=== PATIENT | male | born 1970 ===

== ENCOUNTER 2017-05-07 06:15 | Observation (INO) | payer OTHER ==
[2017-05-07] MEDS ORDERED: Metoclopramide IV* 5 MG/ML 2 ML VIAL IV ONE (06:29)
[2017-05-07] MEDS ORDERED: HYDROmorphone INJ* 1 MG/ML CARPUJECT SYRINGE IV SLOW PU PRN (06:29)
[2017-05-07] MEDS ORDERED: Ketorolac INJ* 30 MG/ML 1 ML VIAL IV ONE (06:29)
[2017-05-07] MEDS ORDERED: NS 0.9% 1000 ML* 2,000 ML IV ONE ×2 (06:29→10:41)
--- NOTE | 2017-05-07 06:54 | ED ---
Maday Le Thomas, scribed for Jessica Ruth MD on 05/07/17 at 0629 . Abdominal Pain/Male - HPI Summary HPI Summary: The patient is a 46 year old male presenting to the emergency department complaining of right-sided flank pain that woke him up this morning at 05:00. The pain radiates to his groin. The pain is constant and it is rated 10/10. The patient states that he is unable to sit. The patient has treated the symptoms with nothing prior to arrival. Patient has been vomiting in the emergency department. Patient denies fever. - History of Current Complaint Chief Complaint: EDFlankPain Stated Complaint: BACK PAIN Time Seen by Provider: 05/07/17 06:22 Hx Obtained From: Patient Onset/Duration: Lasting Hours - onset this AM at 05:00, Still Present Timing: Constant Severity Initially: Severe Severity Currently: Severe Pain Intensity: 10 Pain Scale Used: 0-10 Numeric Location: Flank - R Radiates: Yes Radiates to: Other - Groin Aggravating Factor(s): Other: - Patient is unable to sit Alleviating Factor(s): Nothing Associated Signs And Symptoms: Positive: Vomiting. Negative: Fever - Allergies/Home Medications Allergies/Adverse Reactions: Allergies Allergy/AdvReac Type Severity Reaction Status Date / Time No Known Allergies Allergy Verified 04/29/15 14:04 PMH/Surg Hx/FS Hx/Imm Hx Previously Healthy: Yes Endocrine/Hematology History: Denies: Hx Diabetes Cardiovascular History: Denies: Hx Hypertension History: Denies: Hx Renal Disease Infectious Disease History: No Infectious Disease History: Denies: Traveled Outside the [place] in Last 30 Days - Family History Known Family History: Positive: Other - Patient denies relevant FHx - Social History Alcohol Use: Occasionally Substance Use Type: Reports: None Smoking Status (MU): Never Smoked Tobacco Review of Systems Negative: Fever Positive: Vomiting Positive: flank pain - R All Other Systems Reviewed And Are Negative: Yes Physical Exam - Summary Physical Exam Summary: VITAL SIGNS: Reviewed. GENERAL: Patient is a well-developed and nourished male who is lying in the stretcher. Patient is not in any acute respiratory distress. He is in moderate distress secondary to the pain. HEAD AND FACE: No signs of trauma. No ecchymosis, hematomas or skull depressions. No sinus tenderness. EYES: PERRLA, EOMI x 2, No injected conjunctiva, no nystagmus. EARS: Hearing grossly intact. Ear canals and tympanic membranes are within normal limits. MOUTH: Oropharynx within normal limits. NECK: Supple, trachea is midline, no adenopathy, no JVD, no carotid bruit, no c- spine tenderness, neck with full ROM. CHEST: Symmetric, no tenderness at palpation LUNGS: Clear to auscultation bilaterally. No wheezing or crackles. CVS: Regular rate and rhythm, S1 and S2 present, no murmurs or gallops appreciated. ABDOMEN: Soft, non-tender. No signs of distention. No rebound no guarding, and no masses palpated. Bowel sounds are normal. BACK: He has right CVA tenderness. EXTREMITIES: FROM in all major joints, no edema, no cyanosis or clubbing. NEURO: Alert and oriented x 3. No acute neurological deficits. Speech is normal and follows commands. SKIN: Dry and warm Triage Information Reviewed: Yes Vital Signs On Initial Exam: Initial Vitals Temp Pulse Resp BP Pulse Ox 97.1 F 64 22 158/100 98 05/07/17 06:20 05/07/17 06:20 05/07/17 06:20 05/07/17 06:20 05/07/17 06:20 Vital Signs Reviewed: Yes Diagnostics - Vital Signs Vital Signs Temp Pulse Resp BP Pulse Ox 05/07/17 06:20 97.1 F 64 22 158/100 98 - Laboratory Lab Statement: Any lab studies that have been ordered have been reviewed, and results considered in the medical decision making process. - CT CT Abd/Pel CT Interpretation Completed By: Radiologist - RESULTS PENDING--SEE [facility] Abdominal Pain Fem Course/Dx - Course Assessment/Plan: The patient is a 46 year old male presenting to the emergency department complaining of right-sided flank pain that woke him up this morning at 05:00. The pain radiates to his groin. Patient has been vomiting in the emergency department. He is in moderate distress secondary to the pain. In the ED course the patient was given Dilaudid, Toradol, Reglan, and IV fluids. Bloodwork and urinalysis are ordered. CT Abd/Pel is ordered. The patient is diagnosed with renal colic. The patient will be signed out at shift change to Dr. Bee pending CT and labwork, awaiting disposition. - Diagnoses Provider Diagnoses: Renal colic Discharge - Discharge Plan Condition: Stable Disposition: OTHER Discharge Disposition Comment: Sign out to Dr. eBe, pending CT/Labs, awaiting dispo. Referrals: No Primary Care Phys,NOPCP [Primary Care Provider] - The documentation as recorded by the Maday holder Thomas accurately reflects the service I personally performed and the decisions made by me, Jessica Ruth MD.
[2017-05-07 07:01] LABS: ABS Basophils 0.3 10^3/ul (0-0.2); ABS Eosinophils 0.3 10^3/ul (0-0.6); ABS Lymphocytes 4.1 10^3/ul (1.0-4.8); ABS Monocytes 0.7 10^3/ul (0-0.8); ABS Neutrophils 4.8 10^3/ul (1.5-7.7); ABS Nucleated RBC 0.01 10^3/ul; Eosinophil % 2.7 % (0-6); Hematocrit 45 % (42-52); Hemoglobin 15.4 g/dl (14.0-18.0); Lymphocyte % 40.7 % (25-47); Mean Corpuscular HGB Conc 35 g/dl (31-36); Mean Corpuscular Hemoglobin 31 pg (27-31); Mean Corpuscular Volume 88 fL (80-94); Mean Platelet Volume 9 um3 (7.4-10.4); Nucleated Red Blood Cells % 0.1; Platelet Count 274 10^3/ul (150-450); Red Blood Count 5.05 10^6/ul (4.0-5.4); Red Cell Distribution Width 13 % (10.5-15); White Blood Count 10.1 10^3/ul (3.5-10.8)
[2017-05-07 07:28] LABS: EGFR Non-African American 69.8 (>60)
--- NOTE | 2017-05-07 07:59 | RAD ---
Indication: Flank pain. CT of the abdomen and pelvis was performed without oral or IV contrast administration. Coronal and sagittal reconstructed images were obtained. Lung bases demonstrate no pleural fluid, nodules or masses. Heart is of normal size without evidence of pericardial effusion. Liver is normal in size. No focal lesions or intrahepatic duct dilatation is noted. There is diffuse decrease in density of the liver consistent with hepatic steatosis. The spleen is normal in size. The pancreas demonstrates no mass or pancreatic duct dilatation. Common duct is not dilated. No adrenal lesions are noted. There is mild to moderate right hydronephrosis and hydroureter. There is a calculus in the right ureter is midportion of the L4 level. Mild right hydronephrosis is noted. The calculus measures approximately 5 mm. The left kidney shows no hydronephrosis. The urinary bladder is unremarkable. No dilated loops of bowel are noted. The colon is filled with stool. Diverticulosis without definite evidence of diverticulitis is noted. IMPRESSION: 5 mm calculus in the mid to distal ureter on the right measuring 5 mm at the level of L4. Mild right hydronephrosis is noted. Hepatic steatosis is present.
[2017-05-07] MEDS ORDERED: NS 0.9% 1000 ML* 1,000 ML IV ONE (08:31)
[2017-05-07] MEDS ORDERED: HYDROmorphone INJ* 1 MG/ML CARPUJECT SYRINGE IV ONE ×2 (08:33→10:41)
[2017-05-07] MEDS ORDERED: Tamsulosin CAP* 0.4 MG PO ONE (08:34)
[2017-05-07 09:11] LABS: Urine Appearance Clear; Urine Blood 2+ (Negative); Urine Color Straw; Urine Ketones Negative (Negative); Urine Protein Negative (Negative); Urine Urobilinogen Negative (Negative)
[2017-05-07] MEDS ORDERED: oxyCODONE/Acetamin 5/325 MG* TAB PO ONE (10:40)
[2017-05-07] MEDS ORDERED: Ondansetron INJ* 2 MG/ML VIAL IV ONE (11:55)
[2017-05-07] MEDS ORDERED: Morphine INJ* 4 MG/ML 1 ML CARPUJECT IV ONE (14:17)
[2017-05-07] MEDS ORDERED: Metoclopramide IV* 5 MG/ML 2 ML VIAL IV SLOW PU ONE (14:20)
[2017-05-07] MEDS ORDERED: Acetaminophen TAB* 325 MG PO PRN (17:34)
[2017-05-07] MEDS ORDERED: Morphine INJ* 2 MG/ML 1 ML SYRINGE (TWO MG - NEW SYRINGE VERSION) IV PRN (17:34)
[2017-05-07] MEDS ORDERED: cefTRIAXone(*) 1 GM in NS 0.9% 50 ML* 50 ML IVPB ONE (17:37)
--- NOTE | 2017-05-07 18:21 | ED ---
Quin Le Abhishek, scribed for Luis Antonio Bee MD on 05/07/17 at 0853 . Course/Dx - Course Course Of Treatment: Pt was signed out from Dr. Ruth, pending disposition and awaiting CT A/P. Upon reevaluation, the patient showed moderate pain distress. CT A/P ,per radiologist, reveals 5 mm calculus in the mid to distal ureter on the right measuring 5 mm at the level of L4. Mild right hydronephrosis is noted. Hepatic steatosis is present. ED physician has reveiwed this radiology report. PATIENT ADMITTED BY HOSPITALIST FOR INTRACTABLE FLANK/ABD PAIN. - Diagnoses Provider Diagnoses: Kidney stone on right side Progress (inactive) - Progress Note Progress Note: Pt was signed out from Dr. Ruth, pending disposition and awaiting CT A/P. Upon reevaluation, the patient showed moderate pain distress. The documentation as recorded by the Quin holder Abhishek accurately reflects the service I personally performed and the decisions made by , Luis Antonio Bee MD.
[2017-05-07] MEDS: NS 0.9% 1000 ML* 1,000 ML IV SCH (19:37)
[2017-05-07] MEDS ORDERED: Ondansetron INJ* 2 MG/ML VIAL IV PRN (22:43)
--- NOTE | 2017-05-07 23:48 | HP ---
HISTORY AND PHYSICAL: ADDENDUM: PHYSICAL EXAMINATION GENERAL APPEARANCE: The patient is a very pleasant 46-year-old male, who is in no acute distress. Alert, awake, and oriented x3. VITAL SIGNS: Blood pressure of 121/63, heart rate of 67 and regular, respiratory rate of 14, oxygen saturation 98% on room air, and temperature 97.1. HEENT: Head atraumatic and normocephalic. Eyes; pupils are equal, round, and reactive to light and accommodation. Oropharynx clear. Mucosa moist. NECK: Supple. No JVD, no bruits bilaterally. RESPIRATORY: Clear to auscultation bilaterally. CARDIOVASCULAR: Regular rate and rhythm. No murmur. ABDOMEN: Soft and nontender. Bowel sounds present in all 4 quadrants. EXTREMITIES: There is no edema. Pulses are +2 bilaterally. No clubbing or cyanosis. BACK: The patient has right lower flank tenderness to palpation. LABORATORY DATA: Show a white blood cell count of 10.1, hemoglobin of 15.4, hematocrit of 45, and platelets of 274. Sodium was 137, potassium of 3.8, chloride 104, carbon dioxide 23, BUN 20, and creatinine of 1.14. Liver function tests were unremarkable. Urinalysis showed +[address] of abdomen and pelvis. Impression: A 5-mm calculus at the mid to distal ureter on the right measuring 5 mm at the level of L4. Mild right hydronephrosis is noted. ASSESSMENT AND PLAN: A 46-year-old male with no significant past medical history who presents with right flank pain and he has a 5-mm ureteral stone. The patient is going to be placed on overnight observation to the surgical unit. We intravenous hydration and opioid pain medications for pain control. The patient is going to be asked to strain his urine. Hopefully by tomorrow the patient is going to be able to pass the stone. We will obtain a repeat ultrasound of the right kidney tomorrow if he continues to have symptoms tomorrow. For DVT prophylaxis, the patient is going to be fully ambulatory and he is otherwise low risk. TIME SPENT: Approximately 55 minutes were spent on the admission of this patient more than half that time was spent [id number] with the patient during the interview and physical exam. [id number]/[facility] #: [id number] [facility]
--- NOTE | 2017-05-07 23:48 | HP ---
CONTINUATION ADDENDUM NOW INCLUDED ON THIS REPORT HISTORY AND PHYSICAL: DATE OF ADMISSION: 05/07/17 PRIMARY CARE PROVIDER: None. CHIEF COMPLAINT: Right flank pain. HISTORY OF PRESENT ILLNESS: Mr. Ambrocio is a 46-year-old male with no significant past medical history, who presents with right flank pain that occurred at 5 a.m. today in the morning. The pain had been as bad as 10/10 and currently is at 4/10, radiated to his right groin. He denies hematuria, urinary urgency, or any problems. He has been afebrile. The CT of the abdomen obtained in the ED shows right mild hydronephrosis and a 5-mm ureteral stone. The patient is going to placed on overnight observation with a diagnosis of nephrolithiasis. PAST MEDICAL HISTORY: None. MEDICATIONS: None. ALLERGIES: No known drug allergies. FAMILY HISTORY: Positive for mother with diabetes. SOCIAL HISTORY: The patient denies any tobacco, alcohol, or drug use. His healthcare proxy is his , whom he lives with. REVIEW OF SYSTEMS: Please see history of present illness. All the remaining 15 systems reviewed with the patient and were otherwise negative. CONTINUATION ADDENDUM: PHYSICAL EXAMINATION GENERAL APPEARANCE: The patient is a very pleasant 46-year-old male, who is in no acute distress. Alert, awake, and oriented x3. VITAL SIGNS: Blood pressure of 121/63, heart rate of 67 and regular, respiratory rate of 14, oxygen saturation 98% on room air, and temperature 97.1. HEENT: Head atraumatic and normocephalic. Eyes; pupils are equal, round, and reactive to light and accommodation. Oropharynx clear. Mucosa moist. NECK: Supple. No JVD, no bruits bilaterally. RESPIRATORY: Clear to auscultation bilaterally. CARDIOVASCULAR: Regular rate and rhythm. No murmur. ABDOMEN: Soft and nontender. Bowel sounds present in all 4 quadrants. EXTREMITIES: There is no edema. Pulses are +2 bilaterally. No clubbing or cyanosis. BACK: The patient has right lower flank tenderness to palpation. LABORATORY DATA: Show a white blood cell count of 10.1, hemoglobin of 15.4, hematocrit of 45, and platelets of 274. Sodium was 137, potassium of 3.8, chloride 104, carbon dioxide 23, BUN 20, and creatinine of 1.14. Liver function tests were unremarkable. Urinalysis showed +[address] of abdomen and pelvis. Impression: A 5-mm calculus at the mid to distal ureter on the right measuring 5 mm at the level of L4. Mild right hydronephrosis is noted. ASSESSMENT AND PLAN: A 46-year-old male with no significant past medical history who presents with right flank pain and he has a 5-mm ureteral stone. The patient is going to be placed on overnight observation to the surgical unit. We intravenous hydration and opioid pain medications for pain control. The patient is going to be asked to strain his urine. Hopefully by tomorrow the patient is going to be able to pass the stone. We will obtain a repeat ultrasound of the right kidney tomorrow if he continues to have symptoms tomorrow. For DVT prophylaxis, the patient is going to be fully ambulatory and he is otherwise low risk. TIME SPENT: Approximately 55 minutes were spent on the admission of this patient more than half that time was spent [id number] with the patient during the interview and physical exam. [id number]/[facility] #: [id number]/[facility] #: [id number] GOPAL
[2017-05-08] MEDS: NS 0.9% 1000 ML* 1,000 ML IV SCH (03:41)
[2017-05-08 05:43] LABS: ABS Basophils 0.1 10^3/ul (0-0.2); ABS Eosinophils 0.1 10^3/ul (0-0.6); ABS Lymphocytes 3.6 10^3/ul (1.0-4.8); ABS Monocytes 1.2 10^3/ul (0-0.8); ABS Neutrophils 7.3 10^3/ul (1.5-7.7); ABS Nucleated RBC 0 10^3/ul; Eosinophil % 1.1 % (0-6); Hematocrit 35 % (42-52); Hemoglobin 11.9 g/dl (14.0-18.0); Lymphocyte % 28.9 % (25-47); Mean Corpuscular HGB Conc 34 g/dl (31-36); Mean Corpuscular Hemoglobin 30 pg (27-31); Mean Corpuscular Volume 88 fL (80-94); Mean Platelet Volume 9 um3 (7.4-10.4); Nucleated Red Blood Cells % 0; Platelet Count 211 10^3/ul (150-450); Red Blood Count 3.95 10^6/ul (4.0-5.4); Red Cell Distribution Width 13 % (10.5-15); White Blood Count 12.3 10^3/ul (3.5-10.8)
[2017-05-08 05:57] LABS: EGFR Non-African American 97.9 (>60)
--- NOTE | 2017-05-08 08:10 | PN ---
Subjective Date of Service: 05/08/17 Interval History: Pt is feeling improved but still has mild R flank pain. He has been straining his urine and no stone has been identified. He denies any nausea. No other complaints. Objective Active Medications: Acetaminophen (Tylenol Tab*) 650 mg PO Q4H PRN PRN Reason: FEVER/PAIN Sodium Chloride (Ns 0.9% 1000 Ml*) 1,000 mls @ 125 mls/hr IV PER RATE [facility] Last Admin: 05/08/17 03:41 Dose: 125 mls/hr Morphine Sulfate (Morphine Inj (Syringe)*) 2 mg IV Q4H PRN PRN Reason: PAIN Ondansetron HCl (Zofran Inj*) 4 mg IV Q4H PRN PRN Reason: NAUSEA Tamsulosin HCl (Flomax Cap*) 0.4 mg PO DAILY [facility] Vital Signs - 8 hr 05/08/17 03:40 Temperature 98.3 F Pulse Rate 73 Respiratory 16 Rate Blood Pressure 112/61 (mmHg) O2 Sat by Pulse 97 Oximetry Oxygen Devices in Use Now: None Appearance: Middle aged male lying in bed sleeping, awakens to voice, NAD Eyes: No Scleral Icterus Ears/Nose/Mouth/Throat: Mucous Membranes Moist Respiratory: Symmetrical Chest Expansion and Respiratory Effort, Clear to Auscultation Cardiovascular: NL Sounds; No Murmurs; No JVD, RRR, No Edema Abdominal: NL Sounds; No Tenderness; No Distention Extremities: No Clubbing, Cyanosis Skin: No Rash or Ulcers, No Nodules or Sclerosis Neurological: Alert and Oriented x 3 Result Diagrams: 05/08/17 05:31 05/08/17 05:31 Assess/Plan/Problems-Billing Mr Ambrocio is a 46 yo M who has no significant PMHx who presented to the ER with c/ o severe R flank pain and was found to have a 5mm mid to distal R ureteral stone. - Patient Problems (1) Ureteral stone with hydronephrosis Current Visit: Yes Status: Acute Code(s): N13.2 - HYDRONEPHROSIS WITH RENAL AND URETERAL CALCULOUS OBSTRUCTION SNOMED Code(s): 161750166 Comment: The patient continues to have R flank pain but it is much more tolerable now than on presentation to the ER. He does not believe he passed the stone yet. Will discuss with urology. Start standing flomax and continue to strain the urine. Continue IVF hydration. The patient has mild R hydronephrosis on CT scan. US has been ordered for this AM. He has developed a leukocytosis today without associated fever. He received a single dose of ceftriaxone last evening. Will monitor for signs of infection but I question if the leukocytosis is secondary to stress. (2) DVT prophylaxis Current Visit: Yes Status: Acute Code(s): CNC7492 - SNOMED Code(s): 276071669 Comment: ambulation (3) Full code status Current Visit: Yes Status: Acute Code(s): Z78.9 - OTHER SPECIFIED HEALTH STATUS SNOMED Code(s): 885904911
[2017-05-08 08:20] VITALS: BP 122/65
[2017-05-08] MEDS ORDERED: Tamsulosin CAP* 0.4 MG PO SCH (09:00)
--- NOTE | 2017-05-08 09:34 | RAD ---
Indication: RIGHT upper quadrant pain. Follow-up RIGHT hydronephrosis. Ureteral stone documented on May 07, 2017 CT. Comparison: May 07, 2017 CT. Technique: RIGHT unilateral renal ultrasound Report: 11.5 x 4.5 x 4.8 cm RIGHT kidney. Normal cortical echogenicity. No focal renal lesions evident. No significant pelvicaliectasis evident. Grossly symmetric ureteral jets documented at the urinary bladder. Echogenic liver consistent with fatty infiltration. IMPRESSION: No significant RIGHT hydronephrosis evident. RIGHT ureteral jet documented and appears symmetric with the LEFT.
--- NOTE | 2017-05-08 22:03 | CONS ---
CONSULTATION NOTE: DATE OF CONSULT: 05/08/17 HISTORY OF PRESENT ILLNESS: I was asked by Dr. Dickerson from the hospitalist service to consult on this 46-year-old male because of a recent episode of right renal colic. Mr. Ambrocio presented to the emergency room last night with severe right flank pain. He did not have any fever or chills. His white count was slightly elevated and his urinalysis showed microscopic hematuria, but no pyuria. He was afebrile. He had a noncontrast CT of the abdomen and pelvis, which showed a 4-mm calculus at the junction between the proximal and middle third of the right ureter associated with mild right hydronephrosis. No other abnormalities were noted. No other calculi were seen. The patient was in severe pain and his pain could not be controlled with oral pain medication, so he was admitted by the hospitalist service for hydration and pain control. In the morning, he was feeling better. He had a renal ultrasound, which showed no hydronephrosis and bilateral equal ureteral jets. His urine has been strained and he has not passed his stone. His past history is negative. No past history of any renal diseases or renal calculi. No history of any voiding symptoms. On exam, he looked comfortable, lying in bed. There was minimal right CVA tenderness. The rest of the abdominal exam is normal. IMPRESSION: Right renal colic secondary to a 4-mm right ureteral calculus. Pain much improved and no evidence of persistent obstruction by renal ultrasound today. Considering the patient is feeling better, the size of the stone, and there are no signs of any infection, the plan is to manage him conservatively. He can be discharged home on oral pain medication and on tamsulosin. The stone is of a size that should pass spontaneously without needing any endoscopic stone intervention. I will see him back if the stone has not passed. [id number]/[facility] #: [id number] GOPAL
--- NOTE | 2017-05-09 02:53 | DS ---
DISCHARGE SUMMARY: DATE OF ADMISSION: 05/07/17 DATE OF DISCHARGE: 05/08/17 PRIMARY CARE PROVIDER: None. PRINCIPAL DIAGNOSIS: Right ureteral stone. SECONDARY DIAGNOSIS: None. DISCHARGE MEDICATIONS: 1. Percocet 5/325 one tab p.o. q.4 hours p.r.n. pain. 2. Flomax 0.4 mg p.o. daily. 3. Tylenol 650 mg p.o. q.4 hours p.r.n. pain. HOSPITAL COURSE: Mr. Ambrocio is a 46-year-old male, who has no significant past medical history, who presents to the emergency room with complaints of right flank pain. The patient underwent a CT scan of the abdomen and pelvis, which revealed a 5-mm calculus in the [id number] ureter on the right. Mild right hydronephrosis was also noted. The patient was admitted for pain control related to his right ureteral stone. The patient had aggressive IV fluid hydration overnight and received a dose of Flomax in the emergency room. Despite these interventions, the patient continued to have mild discomfort in his right flank on the day of discharge. Pain was dramatically better and he had only been using heat and ice for pain control. The patient was seen briefly by Dr. Gibson, who felt that the patient could likely go home and it was likely that he would pass the stone. The patient did have a renal ultrasound performed on the day of discharge, which revealed no evidence of hydronephrosis and a right ureteral jet was noted and appears symmetric with the left. Because of this, it was felt that the patient could go home to try to pass the stone there. The patient was in agreement with this plan. The patient is being sent home on Flomax 0.4 mg p.o. daily for the next 1 month. Additionally, Percocet 5/325 one tab p.o. q.4 hours p.r.n. pain has been ordered , though the patient has also been instructed that he can utilize Tylenol or ibuprofen at home for pain control if he does not need something stronger. The patient has been instructed to return to the emergency room if his pain suddenly worsens. FOLLOWUP CONCERNS: The patient is being discharged home today, 05/08/17. ACTIVITY LEVEL: As tolerated. DIET: Regular. CONDITION ON DISCHARGE: Stable. TIME SPENT: Twenty minutes was spent discharging this patient. [id number]/[facility] #: [id number] [facility]
== END 2017-05-08 12:40 | disposition home or self-care (01) ==
LOC: ED 06:15 → SSU 17:34
PROVIDERS: ADMIT Internal Medicine; ATTEND Hospitalist
DX: N13.2 Hydronephrosis with renal and ureteral calculous obstruction (principal)
CPT/HCPCS: 36415; 74176; 76775; 80048; 80053; 81003; 81015; 85025; 96374; 96375; 96376; 99285; A9270-GY; G0378; J0696; J1170; J1885; J2270; J2405; J2765